=== PATIENT | female | born 1975 | race Caucasian/White ===

== ENCOUNTER 2025-04-30 09:33 | Outpatient (REF) | payer SELFPAY ==
--- OUTSIDE RECORDS SUMMARY | 2025-04-30 10:02 | XMS_ITS | Clinical Summary ---
Author Organization [employer] Address [address] [facility] [place] [address] Care Team Providers Care Soil Chemist Name Role Phone Ryan Melendez MD Primary Care Prov ider Allergies No known active allergies Medications Ferrous Sulfate (iron) 325 (65 Fe) MG tablet 2 times daily. Activ e levothyroxine (Synthroid, Levoxyl) 50 MCG tablet daily. Active docusate sodium (Colace Clear) 50 MG capsule 1 capsule as needed Active omeprazole (PriLOSEC) [address] capsule Active VITAMIN D PO daily. Active Loratadine 10 MG capsule Active albuterol 108 (90 Base) MCG/ACT inhaler Inhale 2 puffs every 6 (six) hours if needed for wheezing. 18 g 2 4 10/24/20 25 Active fluticasone furoate (Arnuity Ellipta) 200 MCG/ACT inhaler Inhale 1 puff Once per day. Rinse mouth with water after use to reduce aftertaste and incidence of candidiasis. Do not swallow. 1 each 2 4 10/24/20 25 Active naproxen (Naprosyn) 500 MG tablet Take 1 tablet (500 mg) by mouth 2 times daily. 60 tablet 5 05/28/20 25 Active cyclobenzaprin e (Flexeril) 10 MG tablet Take 1 tablet (10 mg) by mouth 3 times daily for 10 days. 30 tablet 5 05/08/20 25 Active phentermine 15 MG capsule Take 1 capsule (15 mg) by mouth before breakfast. 30 capsule 5 05/28/20 25 Active topiramate (Topamax) 50 MG tablet Take 1 tablet (50 mg) by mouth Once per day. 30 tablet 5 05/28/20 25 Active OXYCODONE HCL PO 04/28/20 25 Discontinu ed(Therapy completed) Active Problems Problem Noted Date Diagnosed Date Mild intermittent asthma without complication Heart murmur 04/28/2025 Assessment & Plan (04/28/2025 12:53 PM EDT): Will order echocardiogram, Chronic left-sided low back pain with left-sided sciatica 04/28/2025 Assessment & Plan (04/28/2025 12:57 PM EDT): Will provide cyclobenzaprine and naproxen, will also refer to PT, er precautions discussed Carpal tunnel syndrome 12/17/2022 Hypothyroid 12/17/2022 Iron deficiency 12/17/2022 Obesity 12/17/2022 Assessment & Plan (04/28/2025 12:55 PM EDT): Will start on phentermine and topamax, risk vs benefits discussed Vitamin D deficiency 12/17/2022 Encounters Date Type Department Care Team Description 04/29/2025 [employer] [address] [place] [id number] Ryan Melendez MD 04/28/2025 10:45 AM EDT Office Visit [facility] [address] [place] [address] Ryan Melendez MD Mild intermittent asthma without complication (Primary Dx); Encounter for screening mammogram for malignant neoplasm of breast; Screening for colon cancer; Encounter for immunization; Class 3 severe obesity due to excess calories without serious comorbidity with body mass index (BMI) of 40.0 to 44.9 in adult; Heart murmur; Class 3 severe obesity due to excess calories with serious comorbidity and body mass index (BMI) of 40.0 to 44.9 in adult; Chronic left-sided low back pain with left-sided sciatica 04/28/2025 Travel 04/19/2025 Patient Outreach [facility] [address] [place] [address] Srikanth Montalvo MD Pre-visit Planning (Pre visit planning LVM ) from Last 3 Months Immunizations Immunization Administration Dates Next Due Tdap 04/28/2025 Family History Medical History Relation Name Comments Asthma Father Osteoarthritis Mother Thyroid disease Mother Cancer Neg Hx Relation Name Status Comments Father Alive Mother Social History Tobacco Use Types Packs/Day Years Used Date Smoking Tobacco: Never Smokeless Tobacco: Never Tobacco Cessation:Counseling Given: Not Answered Alcohol Use Standard Drinks/Week Comments Never 0 (1 standard drink = 0.6 oz pur e alcohol) Depression Answer Date Recorded Patient Health Questionnaire-9 Score 4 04/28/2025 Patient Health Questionnaire-9 Score 4 04/28/2025 Last PHQ-9: Questionnaire Data Not on file 0 04/28/2025 Housing Stability Answer Date Recorded What is your housing situation today? I have nany riggs 04/28/[address] you li ve. Do you have problems with any of the following? None of the above 04/28/2025 Food Insecurity Answer Date Recorded Within the past 12 months, y ou worried that your food would run out before you got money to buy more: Never True 04/28/2025 Within the past 12 months,th e food you bought just didn't last and you didn't have enough money to get more: Never True 09/2025 Transportation Answer Date Recorded In the past 12 months, has l ack of transportation kept you from medical appts, meetings, work or from getting things needed for daily living? No 04/28/2025 Utilities Answer Date Recorded In the past 12 months, has t he electric, gas, oil or water company threatened to shut off services in your home? No 04/28/2025 Depression Answer Date Recorded Patient Health Questionnaire-2 Score 4 04/28/2025 Internet Access Answer Date Recorded Internet Access Q1 Yes 04/28/2025 Internet Access Q2 Not on file 04/28/2025 Comments Unknown Sex and Gender Information Value Date Recorded Sex Assigned at Female 09/17/2022 10:14 AM EDT Legal Sex Female 10:14 AM EDT Gender Identity Female 12/17/2022 6:36 PM EST Sexual Orientation Choose not to disclose 2022 6:36 PM EST Last Filed Vital Signs Vital Sign Reading Time Taken Comments Blood Pressure 138/76 04/28/2025 10:56 AM EDT Pulse 68 04/28/2025 10:56 AM EDT Temperature 37.1 ??C (98.7 ??F) 04/28/2025 10:56 AM E DT Respiratory Rate 16 04/28/2025 10:56 AM EDT Oxygen Saturation 97% 10/24/2024 10:57 AM EST Inhaled Oxygen Concentration - - Weight 95.7 kg (211 lb) 04/28/2025 10:56 AM EDT Height 149.9 cm (4' 11 ) 04/28/2025 10:56 AM EDT Body Mass Index 42.62 04/28/2025 10:56 AM EDT Plan of Treatment Upcoming Encounters Date Type Department Care Team (Late st Contact Info) Description 06/17/2025 1:30 PM EDT Telemedicine [facility] [address] [place] [address] Da Silva Ryan Turner MD [address] [place] [address] 06/29/2025 1:30 PM EDT Office Visit [facility] [address] [place] [address] Earl, Krysten, OD [address] [place] [address] Health Maintenance Due Date Last Done Comments CT Colonography 1974 Colonoscopy 1974 Colorectal Cancer Screening 1974 FIT DNA/Cologuard 1974 FIT 1974 FOBT 1974 HIV Screening 1974 Lipid Panel 1974 Sigmoidoscopy 1974 Disability Screening 1974 Family Planning (PISQ) 1989 Hepatitis C Screening 02/29/1992 Hepatitis B Vaccines (1 of 3 - 19+ 3-dose series) 1993 Pneumococcal Vaccine: 50+ Years (1 of 2 - PCV) 1993 Pap Smear 1995 Cervical Cancer Screening 02/29/2004 HPV/Cotest 02/29/2004 Mammogram 2014 Zoster Vaccines (1 of 2) 02/29/2024 COVID-19 Vaccine (3 - 2023-2 5 season) 2024 11/02/2021, 10/02/2021 Influenza Vaccine (Season Ended) 2025 08/23/2015, 09/03/2014, 09/24/2011 Alcohol/Substance Use Screening 04/28/2026 04/28/2025 Depression Screening 04/28/2026 04/28/2025, 04/28/2025 SDOH Screening 04/28/2026 04/28/2025 Tobacco Screening 04/28/2026 04/28/2025 DTaP/Tdap/Td Vaccines (3 - T d or Tdap) 04/28/2035 04/28/2025, 08/01/2010, 04/13/1998 RSV Patients and Patients Aged 60 years or older (1 - 1-dose 75+ series) 2049 HIB Vaccines Aged Out No longer eligi ble based on patient's age to complete this topic HPV Vaccines Aged Out No longer eligi ble based on patient's age to complete this topic Hepatitis A Vaccines Aged Out No long er eligible based on patient's age to complete this topic IPV Vaccines Aged Out No longer eligi ble based on patient's age to complete this topic Meningococcal B Vaccine Aged Out No l onger eligible based on patient's age to complete this topic Meningococcal Vaccine Aged Out No ra dav eligible based on patient's age to complete this topic RSV under 20 months Aged Out No longe r eligible based on patient's age to complete this topic Rotavirus Vaccines Aged Out No longer eligible based on patient's age to complete this topic Insurance HSN PARTIAL Care Teams Soil Chemist Relationship Specialty Start Date End Date Ryan Melendez MD [address] [place] [phone] PCP - General Internal Medicine 04/28/25
[2025-04-30 14:05] LABS: MANUAL DIFF FLAG NO
[2025-04-30 14:11] LABS: Basophils Percent Auto 0.4 % (0-2); Eosinophils Absolute Auto 0.3 X10*3/uL (0.0-0.4); Eosinophils Percent Auto 3.7 % (0-4); Hematocrit 39.5 % (37.0-47.0); Hemoglobin 12.8 g/dl (12.0-16.0); Imm Gran Abs Auto 0.02 X10*3/uL (0.00-0.03); Imm Gran Pct Auto 0.3 % (0.0-0.4); Lymphocytes Absolute Auto 2.5 X10*3/uL (1.2-4.9); Lymphocytes Percent Auto 34.9 % (20-40); Mean Corpuscular HGB Conc 32.4 g/dl (31.0-35.0); Mean Corpuscular Hemoglobin 26.9 pg (27.0-33.0); Mean Corpuscular Volume 83.2 fL (80.0-98.0); Mean Platelet Volume 10.4 fL (9.4-12.3); Monocytes Absolute Auto 0.5 X10*3/uL (0.1-1.2); Monocytes Percent Auto 6.2 % (2-11); Neutrophils Absolute Auto 3.9 x10*3/uL (2.0-8.3); Neutrophils Percent Auto 54.5 % (45-73); Platelet Count 303 X10*3/uL (160-400); Red Blood Count 4.75 X10*6/uL (4.20-5.50); Red Cell Distribution Width 14.5 % (11.0-16.0); White Blood Count 7.2 X10*3/uL (4.8-10.8)
[2025-04-30 14:22] LABS: Estimated Average Glucose 120 mg/dL; Hemoglobin A1c % 5.8 % (<6.0); Total Hemoglobin (HGBA1C) 3365.1015 umol/L
[2025-04-30 14:40] LABS: Alanine Aminotransferase 30 U/L (0-31); Albumin Level 4.4 g/dL (3.5-5.0); Alkaline Phosphatase 141 U/L (39-117); Anion Gap 8 (12-20); Aspartate Amino Transferase 39 U/L (5-31); Bilirubin Total 0.3 mg/dL (0.0-1.0); Blood Urea Nitrogen 17 mg/dL (9-16); Calcium 11.6 mg/dL (8.4-10.2); Carbon Dioxide 28 mmol/L (22-29); Chloride 107 mmol/L (96-108); Cholesterol 199 mg/dL (<200); Estimated Glomerular Filt Rate > 60; Glucose Random 95 mg/dL (60-115); HDL Cholesterol 58 mg/dL (>40); Iron 46 mcg/dL (30-160); LDL Cholesterol Calculated 125 mg/dL (<100); Percent Iron Saturation 14 % (15-50); Potassium 4.1 mmol/L (3.3-5.1); Sodium 139 mmol/L (135-145); Total Iron Binding Capacity 326 mcg/dL (228-428); Total Protein 7.9 g/dL (6.5-8.0); Triglycerides 84 mg/dL (<150); Unsaturated Iron Binding 280 ug/dL
[2025-04-30 14:55] LABS: Folate 6.2 ng/mL (> or = 4.0); Vitamin B12 414 pg/mL (200-900)
[2025-04-30 15:34] LABS: TSH reflex Free T4 70.08 uIU/mL (0.32-4.0)
[2025-04-30 16:14] LABS: Free T4 (Free Thyroxine) 0.58 ng/dL (0.71-1.85)
[2025-05-03 04:41] LABS: HIV AB/AG Nonreactive (Nonreactive); HIV Num 1 0.06 S/CO (0.00-0.99); ~HepC Num1 0.29 S/CO (0.00-0.79); ~Hepatitis C Antibody Nonreactive (Nonreactive)
== END 2025-04-30 09:34 | disposition home or self-care (01) ==
LOC: HO.CHCLDS 09:33
PROVIDERS: Visit Provider Internal Medicine
DX: E66.813 Obesity, class 3 (principal); Z68.41 Body mass index [BMI] 40.0-44.9, adult; J45.20 Mild intermittent asthma, uncomplicated; Z13.1 Encounter for screening for diabetes mellitus; D64.9 Anemia, unspecified
CPT/HCPCS: 36415; 80053; 80061; 82607; 82746; 83036; 83540; 84439; 84443; 85025; 86803; 87389

== ENCOUNTER 2025-05-11 11:51 | Outpatient (REF) | payer SELFPAY ==
[2025-05-11 14:02] LABS: MANUAL DIFF FLAG NO
[2025-05-11 14:11] LABS: Basophils Percent Auto 0.5 % (0-2); Eosinophils Absolute Auto 0.3 X10*3/uL (0.0-0.4); Hematocrit 37.1 % (37.0-47.0); Hemoglobin 11.8 g/dl (12.0-16.0); Imm Gran Abs Auto 0.02 X10*3/uL (0.00-0.03); Imm Gran Pct Auto 0.3 % (0.0-0.4); Lymphocytes Absolute Auto 2.2 X10*3/uL (1.2-4.9); Lymphocytes Percent Auto 30.4 % (20-40); Mean Corpuscular HGB Conc 31.8 g/dl (31.0-35.0); Mean Corpuscular Hemoglobin 26.5 pg (27.0-33.0); Mean Corpuscular Volume 83.4 fL (80.0-98.0); Mean Platelet Volume 10.4 fL (9.4-12.3); Monocytes Absolute Auto 0.4 X10*3/uL (0.1-1.2); Monocytes Percent Auto 5.6 % (2-11); Neutrophils Absolute Auto 4.3 x10*3/uL (2.0-8.3); Neutrophils Percent Auto 59.2 % (45-73); Platelet Count 289 X10*3/uL (160-400); Red Blood Count 4.45 X10*6/uL (4.20-5.50); Red Cell Distribution Width 14.3 % (11.0-16.0); White Blood Count 7.3 X10*3/uL (4.8-10.8)
[2025-05-11 14:40] LABS: TSH reflex Free T4 44.71 uIU/mL (0.32-4.0)
[2025-05-11 15:19] LABS: Free T4 (Free Thyroxine) 0.97 ng/dL (0.71-1.85)
[2025-05-12 16:33] LABS: Follicle Stimulating Hormone 69.8 mIU/mL
[2025-05-15 16:18] LABS: Anti-Mullerian Hormone-Female 0.01 ng/mL
[2025-05-20 08:28] LABS: Estradiol Ultra Sensitive 14 pg/mL
== END 2025-05-11 11:52 | disposition home or self-care (01) ==
LOC: HO.CHCLDS 11:51
PROVIDERS: Visit Provider Family Medicine
DX: Z12.4 Encounter for screening for malignant neoplasm of cervix (principal); N95.1 Menopausal and female climacteric states; N92.6 Irregular menstruation, unspecified
CPT/HCPCS: 36415; 82166; 82670; 83001; 84439; 84443; 85025

== ENCOUNTER 2025-05-11 14:09 | Outpatient (REF) | payer SELFPAY ==
[2025-05-12 21:58] LABS: C. trachomatis RNA TMA NOT DETECTED (NOT DETECTED); N. gonorrhoeae RNA TMA NOT DETECTED (NOT DETECTED)
[2025-05-12 22:08] LABS: Trichomonas (NAAT) NOT DETECTED (NOT DETECTED)
[2025-05-14 15:01] LABS: HPV Genotype 16 Negative (Negative); HPV Genotype 18 Negative (Negative); HPV High Risk Negative (Negative)
== END 2025-05-11 14:10 | disposition home or self-care (01) ==
LOC: HO.CHCLNP 14:09
PROVIDERS: Visit Provider Family Medicine
DX: Z12.4 Encounter for screening for malignant neoplasm of cervix (principal); Z11.51 Encounter for screening for human papillomavirus (HPV); Z20.2 Contact with and (suspected) exposure to infections with a predominantly sexual mode of transmission
CPT/HCPCS: 87491; 87591; 87626; 87661; 88175

== ENCOUNTER 2025-06-23 10:23 | Outpatient (REF) | payer SELFPAY ==
--- OUTSIDE RECORDS SUMMARY | 2025-06-23 10:59 | XMS_ITS | Clinical Summary ---
Author Organization [facility] it Address [address] [place] [address] Care Team Providers Care Tag Machine Operator Name Role Phone Unavailable Primary Care Provider Unavailabl e Social History Tobacco Use Types Packs/Day Years Used Date Smoking Tobacco: Never Assessed Comments Unknown Sex and Gender Information Value Date Recorded Sex Assigned at Not on file Legal Sex Female 2:54 AM EST Gender Identity Not on file Sexual Orientation Not on file Plan of Treatment Health Maintenance Due Date Last Done Comments Breast Cancer Screening 1974 DTaP,Tdap,and Td Vaccines (1 - Tdap) 1993 Hepatitis B Vaccines (1 of 3 - 19+ 3-dose series) 1993 Cervical Cancer Screening: P ap Smear 1995 Colorectal Cancer Screening: Colonoscopy 12/17/2023 HIV Screening 12/17/2023 Hepatitis C Screening 12/17/2023 Social Influencers of Health Screening 12/17/2023 Pneumococcal Vaccine: 50+ Ye ars (1 of 1 - PCV) 02/29/2024 Zoster Vaccines (1 of 2) 02/29/2024 COVID-19 Vaccine (1 - 2023-2 5 season) 2024 Depression Screening 11/18/2024 Influenza Vaccine (#1) 2025 HIB Vaccines Aged Out No longer eligi [...] on patient's age to complete this topic MMR Vaccines Aged Out No longer eligi ble based on patient's age to complete this topic Meningococcal ACWY Vaccine Aged Out N o longer eligible based on patient's age to complete this topic Meningococcal B Vaccine Aged Out No l onger eligible based on patient's age to complete this topic RSV Immunization Patients Un elisa 20 months Aged Out No longer eligible b ased on patient's age to complete this topic Varicella Vaccines Aged Out No longer eligible based on patient's age to complete this topic
--- OUTSIDE RECORDS SUMMARY | 2025-06-23 10:59 | XMS_ITS | Clinical Summary ---
Author Organization [employer] Address [address] [facility] [address] [place] [address] Care Team Providers Care English Language Learner Teacher Name Role Phone Ryan Melendez MD Primary Care Prov ider Allergies No known active allergies Medications docusate sodium (Colace Clear) 50 MG capsule 1 capsule as needed Active omeprazole (PriLOSEC) [address] capsule Active VITAMIN D PO daily. Active Loratadine 10 MG capsule Active albuterol 108 (90 Base) MCG/ACT inhaler Inhale 2 puffs every 6 (six) hours if needed for wheezing. 18 g 2 10/24/20 24 025 Active fluticasone furoate (Arnuity Ellipta) 200 MCG/ACT inhaler Inhale 1 puff Once per day. Rinse mouth with water after use to reduce aftertaste and incidence of candidiasis. Do not swallow. 1 each 2 10/24/20 24 025 Active Ferrous Sulfate (iron) 325 (65 Fe) MG tablet Take 1 tablet (325 mg) by mouth Once per day. 30 tablet 3 04/30/20 25 Active naproxen (Naprosyn) 500 MG tablet TAKE 1 TABLET BY MOUTH TWICE A DAY 60 tablet 05/26/20 25 Active levothyroxine (Synthroid, Levoxyl) 75 MCG tablet TAKE 1 TABLET BY MOUTH EVERY DAY BEFORE BREAKFAST 30 tablet 05/31/20 25 Active phentermine 15 MG capsule Take 1 capsule (15 mg) by mouth before breakfast. 30 capsule 05/31/20 25 025 Active topiramate (Topamax) 50 MG tablet Take 1 tablet (50 mg) by mouth Once per day. 90 tablet 06/17/20 25 025 Active naproxen (Naprosyn) 500 MG tablet Take 1 tablet (500 mg) by mouth 2 times daily. 60 tablet 04/28/20 25 025 Discontinued cyclobenzaprin e (Flexeril) 10 MG tablet Take 1 tablet (10 mg) by mouth 3 times daily for 10 days. 30 tablet 04/28/20 25 025 Discontinued phentermine 15 MG capsule Take 1 capsule (15 mg) by mouth before breakfast. 30 capsule 04/28/20 025 Discontinued(Re order (will not trigger notification to Pharmacy)) topiramate (Topamax) 50 MG tablet Take 1 tablet (50 mg) by mouth Once per day. 30 tablet 04/28/20 25 025 Discontinued(Re order (will not trigger notification to Pharmacy)) levothyroxine (Synthroid, Levoxyl) 75 MCG tablet Take 1 tablet (75 mcg) by mouth before breakfast. 30 tablet 04/30/20 025 Discontinued Active Problems Problem Noted Date Diagnosed Date Irregular periods 05/11/2025 Assessment & Plan (05/11/2025 11:59 AM EDT): 50 yo F with AUB, will send evaluation labs and US, will send for woman's health CNM. Followup results and imaging. Pt concern of perimenopausal state, c/o vasomotor symptoms will send labs and send to CNM for eval Mild intermittent asthma without complication Heart murmur 04/28/2025 Assessment & Plan (04/28/2025 12:53 PM EDT): Will order echocardiogram, Chronic left-sided low back pain with left-sided sciatica 04/28/2025 Assessment & Plan (04/28/2025 12:57 PM EDT): Will provide cyclobenzaprine and naproxen, will also refer to PT, er precautions discussed Carpal tunnel syndrome 12/17/2022 Hypothyroid 12/17/2022 Assessment & Plan (06/17/2025 2:18 PM EDT): New tsh to be done next week, will probably need further adjustment, pending thyroid ultrasound Iron deficiency 12/17/2022 Obesity 12/17/2022 Assessment & Plan (06/17/2025 2:19 PM EDT): On phentermine and topamax, has lost more than 10lbs, encouraged to continue low calorie diet and exercise as tolerated Assessment & Plan (04/28/2025 12:55 PM EDT): Will start on phentermine and topamax, risk vs benefits discussed Vitamin D deficiency 12/17/2022 Encounters Date Type Department Care Team Description 06/17/2025 1:30 PM EDT Telemedicine [facility] [address] [place] [address] Ryan Melendez MD Acquired hypothyroidism (Primary Dx); Class 2 severe obesity due to excess calories with serious comorbidity and body mass index (BMI) of 39.0 to 39.9 in adult ([facility]) 06/17/2025 Travel 06/16/2025 Telephone [facility] [address] [place] [address] Ryan Melendez MD chart prep 05/31/2025 Telephone [facility] [address] [place] [address] Ryan Melendez MD Med Refill 05/29/2025 Refill [facility] [address] [place] [address] Ryan Melendez MD 05/26/2025 Refill [facility] [address] [place] [address] Ryan Melendez MD 05/25/2025 Telephone [facility] [address] [place] [phone] Ryan Melendez MD No Show (PT no show 9AM with letter will be sent out.) 05/24/2025 Telephone [facility] [address] [place] [phone] Neha Carly, JASON Insurance 05/24/2025 Telephone [facility] [address] [place] [address] Ryan Melendez MD chart prep 05/12/2025 Results Follow-Up [facility] [address] [place] [address] Halima De La Cruz MD CBC auto differential, TSH W/Reflex to FT4, FSH, Additional followed-up results: 4 05/11/2025 11:00 AM EDT Procedure Visit [facility] [address] [place] [phone] Halima De La Cruz MD Screening for colon cancer (Primary Dx); Irregular periods; Vasomotor symptoms due to menopause; Cervical cancer screening 05/11/2025 Orders Only [facility] [address] [place] [phone] Halima De La Cruz MD 05/11/2025 Travel 05/06/2025 Orders Only [facility] [address] [place] [address] Ryan Melendez MD 04/30/2025 Telephone [facility] [address] [place] [address] Ryan Melendez MD 04/30/2025 Orders Only [facility] [address] [place] [phone] Ryan Melendez MD Acquired hypothyroidism (Primary Dx) 04/29/2025 Telephone [facility] [address] [place] [address] Ryan Melendez MD 04/28/2025 10:45 AM EDT Office Visit [facility] [address] [place] [address] Ryan Melendez MD Mild intermittent asthma without [...] left-sided sciatica 04/28/2025 Travel 04/19/2025 Patient Outreach [facility] [address] [place] [address] Srikanth Montalvo MD Pre-visit Planning (Pre visit planning LVM ) from Last 3 Months Immunizations Immunization Administration Dates Next Due Influenza injectable quadriv alent IIV4 with preservative 08/23/2015 Influenza, IIV3, injectable 09/03/2014, 1 TD (adult), 2 Lf tetanus tox oid, preservative free, adsorbed 04/13/1998 Tdap 04/28/2025,08/01/2010 Family History Medical History Relation Name Comments Asthma Father Osteoarthritis Mother Thyroid disease Mother Breast cancer Sister Cancer Neg Hx Relation Name Status Comments Father Alive Mother Sister Social History Tobacco Use Types Packs/Day Years [...] Sign Reading Time Taken Comments Blood Pressure 140/82 05/11/2025 11:11 AM EDT Pulse 88 05/11/2025 11:11 AM EDT Temperature 36.4 C (97.6 F) 05/11/2025 11:11 AM EDT Respiratory Rate 20 05/11/2025 11:11 AM EDT Oxygen Saturation 98% 05/11/2025 11:11 AM EDT Inhaled Oxygen Concentration - - Weight 89.4 kg (197 lb) 06/17/2025 1:36 PM EDT Height 151 cm (4' 11.45 ) 05/11/2025 11:11 AM ED T Body Mass Index 39.19 05/11/2025 11:11 AM EDT Plan of Treatment Upcoming Encounters Date Type Department Care Team (Late st Contact Info) Description 06/29/2025 1:30 PM EDT Office Visit [facility] [address] [place] [address] Earl, Krysten, OD [address] [place] [address] Health Maintenance Due Date Last Done Comments CT Colonography 1975 Colonoscopy 1975 Colorectal Cancer Screening 1975 FIT DNA/Cologuard 1975 FIT 1975 FOBT 1975 Sigmoidoscopy 1975 Disability Screening 1975 Family Planning (PISQ) 1989 Hepatitis B Vaccines (1 of 3 - 19+ 3-dose series) 1993 Pneumococcal Vaccine: 50+ Years (1 of 2 - PCV) 1993 Mammogram 2014 Zoster Vaccines (1 of 2) 02/29/2024 COVID-19 Vaccine (3 - 2023-2 5 season) 2024 11/02/2021, 10/02/2021 Influenza Vaccine (#1) 2025 5, 09/03/2014, 09/24/2011 Alcohol/Substance Use Screening 04/28/2026 04/28/2025 Depression Screening 04/28/2026 04/28/2025, 04/28/2025 SDOH Screening 04/28/2026 04/28/2025 Diabetes: Hemoglobin A1C 04/30/2026 04/30/2025 Tobacco Screening 05/11/2026 05/11/2025 Pap Smear 05/11/2028 05/11/2025 Lipid Panel 04/30/2030 04/30/2025 Cervical Cancer Screening 05/11/2030 HPV/Cotest 05/11/2030 05/11/2025 DTaP/Tdap/Td Vaccines (3 - T d or Tdap) 04/28/2035 04/28/2025, 08/01/2010, 04/13/1998 RSV Patients and Patients Aged 60 years or older (1 - 1-dose 75+ series) 2049 HIV Screening Completed 04/30/2025 Hepatitis C Screening Completed 04/30/2025 HIB Vaccines Aged Out No longer eligi [...] on patient's age to complete this topic Procedures Procedure Name Priority Date/Time Associated Diagnosis Comments T4, FREE Routine 05/11/2025 11:57 AM EDT ANTI-MULLERIAN HORMONE (AMH), FEMALE Routine 05/11/2025 11:57 AM EDT Vasomotor symptoms due to menopause TSH W/REFLEX TO FT4 Routine 05/11/2025 1 1:57 AM EDT Irregular periods CBC WITH AUTO DIFFERENTIAL Routine 05/11/2025 11:57 AM EDT Irregular periods ESTRADIOL Routine 05/11/2025 11:57 AM EDT Vasomotor symptoms due to menopause FSH Routine 05/11/2025 11:57 AM EDT Vasomotor symptoms due to menopause PAP SMEAR Routine 05/11/2025 11:32 AM EDT Cervical cancer screening CHLAMYDIA/N. GONORRHOEAE AND T. VAGINALIS RNA, QUAL,TMA Routine 05/11/2025 11:32 AM EDT Cervical cancer screening HPV DNA, LOW/HIGH RISK Routine 05/11/2025 11:32 AM EDT Cervical cancer screening T4, FREE Routine 04/30/2025 9:42 AM EDT Acquired hypothyroidism HEMOGLOBIN A1C Routine 04/30/2025 9:42 AM EDT Class 3 severe obesity due to excess calories without serious comorbidity with body mass index (BMI) of 40.0 to 44.9 in adult HEPATITIS C AB W/REFL TO HCV RNA, QN, PCR Routine 04/30/2025 9:42 AM EDT Mild intermittent asthma without complication HIV 1/2 ANTIGEN/ANTIBODY, FOURTH GENERATION W/RFL Routine 04/30/2025 9:42 AM EDT Mild intermittent asthma without complication TSH W/REFLEX TO FT4 Routine 04/30/2025 9 :42 AM EDT Mild intermittent asthma without complication LIPID PANEL, STANDARD Routine 04/30/2025 9:42 AM EDT Mild intermittent asthma without complication COMPREHENSIVE METABOLIC PANEL Routine 04/30/2025 9:42 AM EDT Mild intermittent asthma without complication VITAMIN B12/FOLATE, SERUM PANEL Routine 04/30/2025 9:42 AM EDT Mild intermittent asthma without complication IRON AND TOTAL IRON BINDING CAPACITY Routine 04/30/2025 9:42 AM EDT Mild intermittent asthma without complication CBC WITH AUTO DIFFERENTIAL Routine 04/30/2025 9:42 AM EDT Mild intermittent asthma without complication from Last 3 Months Results * (ABNORMAL) TSH W/Reflex to FT4 (05/11/2025 11:57 AM EDT) Only the most recent of2 resultswithin the time period is included. TSH reflex Free T4 44.71(H) 0.32 - 4.0 uIU/mL [facility] Blood Venous blood specimen / Unknown 05/11/2025 11:57 AM EDT 05/11/2025 1:58 PM EDT us Halima De La Cruz MD LAB BLOOD ORDERABLES Final Re sult [facility] [address] [place] [phone] * (ABNORMAL) CBC auto differential (05/11/2025 11:57 AM EDT) Only the most recent of2 resultswithin the time period is included. White Blood Count 7.3 4.8 - 10.8 X10*3/uL [facility] Red Blood Count 4.45 4.20 - 5.50 X10*6/uL [facility] Hemoglobin 11.8(L) 12.0 - 16.0 g/dl [facility] Hematocrit 37.1 37.0 - 47.0 % [facility] Mean Corpuscular Volume 83.4 80.0 - 98.0 fL [facility] Mean Corpuscular Hemoglobin 26.5(L) 27.0 - 33.0 pg [facility] Mean Corpuscular HGB Conc 31.8 31.0 - 35.0 g/dl [facility] Red Cell Distribution Width 14.3 11.0 - 16.0 % [facility] Platelet Count 289 160 - 400 X10*3/uL [facility] Mean Platelet Volume 10.4 9.4 - 12.3 fL [facility] Neutrophils Percent Auto 59.2 45 - 73 % [facility] Imm Gran Pct Auto 0.3 0.0 - 0.4 % [facility] Lymphocytes Percent Auto 30.4 20 - 40 % [facility] Monocytes Percent Auto 5.6 2 - 11 % [facility] Eosinophils Percent Auto 4.0 0 - 4 % [facility] Basophils Percent Auto 0.5 0 - 2 % [facility] NRBC Pct Auto 0.0 0.0 - 0.2 /100WBC [facility] Neutrophils Absolute Auto 4.3 2.0 - 8.3 x10*3/uL [facility] Imm Gran Abs Auto 0.02 0.00 - 0.03 X10*3/uL [facility] Lymphocytes Absolute Auto 2.2 1.2 - 4.9 X10*3/uL [facility] Monocytes Absolute Auto 0.4 0.1 - 1.2 X10*3/uL [facility] Eosinophils Absolute Auto 0.3 0.0 - 0.4 X10*3/uL [facility] Basophils Absolute Auto 0.0 0.0 - 0.2 X10*3/uL [facility] NRBC Abs Auto 0.000 0.0 - 0.012 X10*3/uL [facility] Blood Venous blood specimen / Unknown 05/11/2025 11:57 AM EDT 05/11/2025 1:58 PM EDT us Halima De La Cruz MD LAB BLOOD ORDERABLES Final Re sult Performing Organization Address [facility] Co de Phone Number [facility] [address] [place] [phone] * Anti-Mullerian Hormone (AMH), Female (05/11/2025 11:57 AM EDT) Anti-Mullerian Hormone (AMH), Female 0.01 ng/mL [facility] Comment:Reference Range: NOT ESTABLISHEDFemale: 0-17 Years: Not Established 18- 25 Years: 1.02-14.63 26-30 Years: 0.69-13.39 31-35 Years: 0.36-10.07 36-40 Years: 0.18-5.68 41-45 Years: 0.01-2.99 >45 Years: Not EstablishedTHIS TEST WAS PERFORMED AT:[facility] [id number] [place] [address]LRFUSTRUNG MYERS MD,PHD,PARUL Blood Venous blood specimen / Unknown 05/11/2025 11:57 AM EDT 05/11/2025 1:54 PM EDT Halima De La Cruz MD LAB BLOOD ORDERABLES Final Re sult Performing Organization Address [facility] Co de Phone Number [facility] [address] [place] [phone] * Estradiol (05/11/2025 11:57 AM EDT) Estradiol Ultra Sensitive 14 pg/mL [facility] Comment:Female Reference Ran ges for Estradiol, Ultrasensitive (pg/mL): Follicular Phase: 39-375 Luteal Phase: 48-440 Postmenopausal Phase: < or = 10This test was developed and its analytical performancecharacteristics have been determined by [employer].It has not been cleared or approved by the FDA. This assayhas been validated pursuant to the CLIA regulations and isused for clinical purposes.THIS TEST WAS PERFORMED AT:[facility] [id number] [place] [address]MJTWBTRUNG MYERS MD,PHD,PARUL Blood Venous blood specimen / Unknown 05/11/2025 11:57 AM EDT 05/11/2025 1:54 PM EDT Halima De La Cruz MD LAB BLOOD ORDERABLES Final Re sult Performing Organization Address [facility] Co de Phone Number [facility] [address] [place] [phone] * T4, Free (05/11/2025 11:57 AM EDT) Only the most recent of2 resultswithin the time period is included. Free T4 (Free Thyroxine) 0.97 0.71 - 1.85 ng/dL [facility] 05/11/2025 11:5 7 AM EDT 05/11/2025 1:58 PM EDT Halima De La Cruz MD LAB BLOOD ORDERABLES Final Re sult Performing Organization Address [facility] Co de Phone Number [facility] [address] [place] [phone] * FSH (05/11/2025 11:57 AM EDT) Follicle Stimulating Hormone 69.8 mIU/mL [facility] Comment:Reference Range Foll icular Phase 2.5-10.2 Mid-cycle Peak 3.1-17.7 Luteal Phase 1.5- 9.1 Postmenopausal 23.0-116.3THIS TEST WAS PERFORMED AT:[facility] [address] [address]GHOVPDINA PHILLIPS MD Blood Venous blood specimen / Unknown 05/11/2025 11:57 AM EDT 05/11/2025 1:54 PM EDT Halima De La Cruz MD LAB BLOOD ORDERABLES Final Re sult Performing Organization Address City/[facility]/ZIP Co de Phone Number [facility] [address] [place] [phone] * STI testing add on (NG, CT, Trich) (05/11/2025 11:32 AM EDT) Trichomonas (NAAT) NOT DETECTED NOT DETECTED [facility] Comment:The analytical perfo rmance characteristics of thisassay have been determined by [employer]. Themodifications have not been cleared or approved bythe FDA. This assay has been validated pursuant to theCLIA regulations and is used for clinical purposes.For additional information, please refer [email or web address].[employer]/faq/Trichomonastma(This link is being provided for information/educational purposes only.)THIS TEST WAS PERFORMED AT:[facility] [place] [id number] PHILLIPS MD CTNG Ref Lab NOT DETECTED NOT DETECTED [facility] NG Ref Lab NOT DETECTED NOT DETECTED [facility] ThinPrep vial Cervix uteri structure / Unknown 05/11/2025 11:32 AM EDT 05/11/2025 2:20 PM EDT Halima De La Cruz MD LAB CYTOLOGY ORDERABLES Final Result Performing Organization Address [facility] Co de Phone Number [facility] [address] [place] [phone] * HPV High Risk with Reflex to Subtypes (05/11/2025 11:32 AM EDT) HPV High Risk Negative Negative [facility] HPV Genotype 16 Negative Negative [facility] HPV Genotype 18 Negative Negative [facility] Comment:HPV testing performe d at [facility] (CLIA#[id number]), [address] [place] [phone].Testing for HPV was performed using the [employer]system. The presence of HPV in the female genital tract isassociated with a number of diseases, including cervicalcarcinoma. The HPV DNA high risk pool tests for HPV 31, 33,35, 39, 45, 51, 52, 56, 58, 59, 66 and 68. The testing forHPV 16 and 18 genotypes has also been performed. A positiveresult indicates detection of nucleic acid sequences fromone or more subtypes, whereas a negative result indicatessuch sequences were not detected. Pap Vial 05/11/2025 11:3 2 AM EDT 05/11/2025 2:20 PM EDT us Halima De La Cruz MD LAB BLOOD ORDERABLES Final Re sult [facility] [address] [place] [phone] * Pap Smear (05/11/2025 11:32 AM EDT) Swab Cervix uteri structure / Unknown 05/11/2025 11:32 AM EDT 05/11/2025 2:20 PM EDT Narrative [facility] - 05/17/2025 12:43 PM EDT ----- ------- Name: Jennifer Aguayo Age/Sex: 50/F : 1975 Unit#: [id number] Attend Dr: Halima De La Cruz MD Re05/11/25 Status: DEP REF Location: HO.CHCLNP Disch: ----- ------- SPEC : [id number] RECD: 05/11/25 STATUS: TARAS ZENG NUM: [id number] FLORIN: 05/11/25-1132 [facility] [address]: Halima De La Cruz MD ENTERED: 05/11/25 SP TYPE: Pap Smr OT DR: ORDERED: Pap Smear Interpretation Satisfactory for evaluation. Negative for intraepithelial lesion or malignancy. No endocervical cells seen. HPV High Risk: Negative HPV Genotyping 16: Negative HPV Genotyping 18: Negative Clinical Information LMP: Unknown date Previous PAP test: Unknown date/findings Other history: Cervical cancer screening Material Received ThinPrep-Cervical PAP Disclaimer As of September 09, 2024, the technical services to include automated prescreening performed by the Thin[employer] Imaging System, PAP screening and HPV testing will be performed at [facility] (CLIA #[id number]), [address] [place] [address]. Testing for HPV was performed using the [employer] system. The presence of HPV in the female genital tract is associated with a number of diseases, including cervical carcinoma. The HPV DNA high risk pool tests for HPV 31, 33, 35, 39, 45, 51, 52, 56, 58, 59, 66 and 68. The testing for HPV 16 and 18 genotypes has also been performed. A positive result indicates detection of nucleic acid sequences from one or more subtypes, whereas a negative result indicates such sequences were not detected. All professional services are performed by [facility] ([address] [place] [phone]; ; CLIA #[id number]). The PAP Test is a screening procedure with the inherent possibility of both false negative and false positive results. Results should be interpreted in the context of historic and current clinical findings. Reliability of the PAP Test is enhanced by performing the test on a regular repetitive basis. CONTINUED ON NEXT PAGE ----- ------- Name: Jennifer Aguayo Age/Sex: 50/F : 1975 Unit#: [id number] Attend Dr: Halima De La Cruz MD Re05/11/25 Status: DEP REF Location: HO.CHCLNP Disch: ----- ------- SPEC : [id number] RECD: 05/11/25-1420 STATUS: TARAS ZENG NUM: [id number] FLORIN: 05/11/25-1132 [facility] [address]: Halima De La Cruz MD ENTERED: 05/11/25-1430 SP TYPE: Pap Wilder GIVENS DR: ORDERED: Pap Smear ----- ------- Signed (signature on file) PEYMAN Mauro ([facility]) 05/17/25 1243 ----- ------- END OF REPORT Halima De La Cruz MD LAB CYTOLOGY ORDERABLES Final Result Performing Organization Address [facility] Co de Phone Number [facility] [address] [place] [phone] * Vitamin B12 (Cobalamin) and Folate Panel, Serum (04/30/2025 9:42 AM EDT) Vitamin B12 414 200 - 900 pg/mL [facility] Comment:NORMAL 200-900 PG/ML INDETERMINATE 160-199 PG/ML DEFICIENT < 160 PG/ML Folate 6.2 > or = 4.0 ng/mL [facility] Comment:Reference Values:> o r = 4.0 ng/mL< 4.0 ng/mL suggests folate deficiency Methotrexate, aminopterin and folinic acid(leucovorin) are chemotherapeutic agents whose molecularstructures are similar to folate; therefore, the Architectfolate assay cannot be used for patients using these drugs. Blood Venous blood specimen / Unknown 04/30/2025 9:42 AM EDT 04/30/2025 2:05 PM EDT Ryan Turner MD LAB BLOOD ORDERABL ES Final Result Performing Organization Address [facility] de Phone Number [facility] [address] [place] [phone] * Hepatitis C Antibody with Reflex to HCV, RNA, Quantitative, Real-Time PCR (04/30/2025 9:42 AM EDT) Hepatitis C Antibody Nonreactive Nonreactive [facility] Comment:Antibodies to HCV no t detected; does not exclude early acuteHCV infection. Blood Venous blood specimen / Unknown 04/30/2025 9:42 AM EDT 04/30/2025 2:02 PM EDT Ryan Turner MD LAB BLOOD ORDERABL ES Final Result Performing Organization Address [facility] Co de Phone Number [facility] [address] [place] [phone] * (ABNORMAL) Iron And Total Iron Binding Capacity (04/30/2025 9:42 AM EDT) Iron 46 30 - 160 mcg/dL [facility] Total Iron Binding Capacity 326 228 - 428 mcg/dL [facility] Percent Iron Saturation 14(L) 15 - 50 % [facility] Unsaturated Iron Binding 280 ug/dL [facility] Blood Venous blood specimen / Unknown 04/30/2025 9:42 AM EDT 04/30/2025 2:05 PM EDT Ryan Turner MD LAB BLOOD ORDERABL ES Final Result [facility] [address] [place] [phone] * HIV-1/2 Antigen and Antibodies, Fourth Generation, with Reflexes (04/30/2025 9:42 AM EDT) Pathologist [facility] HIV AB/AG Nonreactive Nonreactive [facility] Comment:HIV-1 p24 Ag and/or HIV-1/HIV-2 Ab not detected.A test result that is nonreactive does not exclude thepossibility of exposure to or infection with HIV-1 and/orHIV-2. Nonreactive results in this assay for individualswith prior exposure to HIV-1 and/or HIV-2 may be due toantigen and antibody levels that are below the limit ofdetection of this assay.The [employer] HIV Ag/Ab Combo assay result andsupplemental assay results should be interpreted inconjunction with the patient's clinical presentation,history and other laboratory results. If the results areinconsistent with clinical evidence, additional testing issuggested to confirm the result. Blood Venous blood specimen / Unknown 04/30/2025 9:42 AM EDT 04/30/2025 2:02 PM EDT us Ryan Turner MD LAB BLOOD ORDERABL ES Final Result Performing Organization Address [facility] Co de Phone Number [facility] [address] [place] [address] [phone] * Hemoglobin A1c (04/30/2025 9:42 AM EDT) Hemoglobin A1c 5.8 <6.0 % [facility] Comment:Hemoglobin A1C Refer ence Range Adults: 4.8 - 6.0 % Non diabetic: < 6.0 % Goal: < 7.0 %Additional Action Suggested: > 8.0 %Note: Hemoglobin A1c results are invalid for patients with abnormal amounts of HbF. Blood transfusions may impact the HbA1c concentration in the patient sample. Estimated Average Glucose 120 mg/dL [facility] Comment:eAG = Estimated ave rage glucose which is %A1C expressed asaverage glucose, using the formula of the [id number] Glucose study (ADAG), Diabetes Care, Vol.31,#8,Jun. 2007 Blood Venous blood specimen / Unknown 04/30/2025 9:42 AM EDT 04/30/2025 2:02 PM EDT Ryan Turner MD LAB BLOOD ORDERABL ES Final Result Performing Organization Address [facility] Co de Phone Number [facility] [address] [place] [phone] * (ABNORMAL) Lipid Panel, Standard (04/30/2025 9:42 AM EDT) Triglycerides 84 <150 mg/dL [facility] Comment:Desirable Triglyceri de: less than 150 mg/dLBorderline High Triglyceride 150-199 mg/dLHigh Triglyceride: 200-499 mg/dLVery High Triglyceride: greater than or equal to 5OO mg/dL Cholesterol 199 <200 mg/dL [facility] Comment:Desirable Cholestero l: less than 200 mg/dLBorderline High Cholesterol: 200-239 mg/dLHigh Cholesterol: greater than 239 mg/dL LDL Cholesterol Calculated 125(H) <100 mg/dL [facility] Comment:Desirable LDL: less than 100 mg/dLNear Optimal/Above Optimal LDL: 110- 129 mg/dLBorderline High LDL: 130-159 mg/dLHigh LDL: 160-189 mg/dLVery High LDL: greater than or equal to 190 mg/dL HDL Cholesterol 58 >40 mg/dL [facility] Comment:Desirable HDL: great er than 40 mg/dL Note: This HDL assay may give artificially low results in patients with liver disease. Blood Venous blood specimen / Unknown 04/30/2025 9:42 AM EDT 04/30/2025 2:05 PM EDT us Ryan Turner MD LAB BLOOD ORDERABL ES Final Result [facility] [address] [place] [phone] * (ABNORMAL) Comprehensive Metabolic Panel (04/30/2025 9:42 AM EDT) Sodium 139 135 - 145 mmol/L [facility] Potassium 4.1 3.3 - 5.1 mmol/L [facility] Chloride 107 96 - 108 mmol/L [facility] Carbon Dioxide 28 22 - 29 mmol/L [facility] Anion Gap 8(L) 12 - 20 [facility] Urea Nitrogen (BUN) 17(H) 9 - 16 mg/dL [facility] Creatinine, Serum 0.79 0.5 - 1.4 mg/dL [facility] Estimated Glomerular Filt Rate >60 [facility] Comment:Chronic Kidney Disea se: Estimated GFR < 60 mL/min/[id number] Kidney Disease: Estimated GFR < 15 mL/min/1.73m2 Glucose 95 60 - 115 mg/dL [facility] Calcium 11.6(H) 8.4 - 10.2 mg/dL [facility] Bilirubin, Total 0.3 0.0 - 1.0 mg/dL [facility] Aspartate Amino Transferase 39(H) 5 - 31 U/L [facility] Alanine Aminotransferase 30 0 - 31 U/L [facility] Total Protein 7.9 6.5 - 8.0 g/dL [facility] Albumin Level 4.4 3.5 - 5.0 g/dL [facility] Alkaline Phosphatase 141(H) 39 - 117 U/L [facility] Blood Venous blood specimen / Unknown 04/30/2025 9:42 AM EDT 04/30/2025 2:05 PM EDT Ryan Turner MD LAB BLOOD ORDERABL ES Final Result [facility] [address] [place] [phone] from Last 3 Months Insurance [id number] Care Teams English Language Learner Teacher Relationship Specialty Start Date End Date Ryan Melendez MD [address] [place] [phone] PCP - General Internal Medicine 04/28/25
== END 2025-06-23 10:24 | disposition home or self-care (01) ==
LOC: HO.CHCLDS 10:23
PROVIDERS: Visit Provider Family Medicine
DX: E03.9 Hypothyroidism, unspecified (principal)
CPT/HCPCS: 36415; 84443